=== PATIENT | female | born 1985 | race Caucasian/White ===

== ENCOUNTER 2016-11-02 14:25 | Inpatient (IN) | payer OTHER ==
--- NOTE | 2016-11-02 15:31 | HP ---
[id number] Chief Complaint: R/o premature of membranes History Source: Patient - Past Medical History ...: 4 ...Para: 1 - Past Surgical History Past Surgical History: Yes: None, Hx Myomectomy: No Hx Transabdominal Cerclage: No Home Medications - Allergies Allergies/Adverse Reactions: Allergies Allergy/AdvReac Type Severity Reaction Status Date / Time No Known Allergies Allergy Verified 11/02/16 15:10 - Home Medications Home Medications: Ambulatory Orders Vit/Iron Fumarate/FA [ Tablet] 1 tab PO DAILY 11/02/16 Review of Systems - Review of Systems Constitutional: reports: No Symptoms Eyes: reports: No Symptoms HENT: reports: No Symptoms Neck: reports: No Symptoms Cardiovascular: reports: No Symptoms Respiratory: reports: No Symptoms Gastrointestinal: reports: No Symptoms Genitourinary: reports: No Symptoms Breasts: reports: No Symptoms Reported Musculoskeletal: reports: No Symptoms Integumentary: reports: No Symptoms Neurological: reports: No Symptoms Endocrine: reports: No Symptoms Hematology/Lymphatic: reports: No Symptoms Psychiatric: reports: No Symptoms Physical Exam - Maternity Constitutional: Yes: Well Nourished, No Distress - Abdominal Exam/OB Fundal Height: 1 Number of Fetuses: Single Presentation: Vertex Contractions: No Monitor Mode: External Category: I Decelerations: None - Vaginal Exam/OB Dilatation (cm): closed Effacement (%): long Amniotic Membrane Status: Intact Nitrazine Test: Negative Presentation: Vertex/Position - Physical Exam Musculoskeletal: Yes: WNL Extremities: Yes: WNL Edema: No Hemorrhage Risk Assessment - Risk Factors Medium Risk Factors: Yes: Prior , uterine surgery,or multiple laparotomies Risk Score: 1 Risk Level: Medium Risk Problem List - Problems (1) 26 weeks gestation of Code(s): Z3A.26 - 26 WEEKS GESTATION OF (2) Oligohydramnios antepartum Code(s): O41.00X0 - OLIGOHYDRAMNIOS, UNSP TRIMESTER, NOT APPLICABLE OR UNSP Qualifiers: Fetus number: single or unspecified fetus Trimester: second trimester Qualified Code(s): O41.02X0 - Oligohydramnios, second trimester, not applicable or unspecified Assessment/Plan GDM Oligo asmit for observation to see if leaking iup at 26 weeks Prev CS Plan Admit to observe steroids x 48 IV abs will see mFM on Monday DC home vs transfer to [facility]
[2016-11-02] MEDS ORDERED: BETAMET ACET/BETAMET NA PH 30 MG/5 ML VIAL IM ONE (15:33)
[2016-11-02] MEDS: ELECTROLYTE-148 SOLN 1,000 ML IV SCH (16:00)
[2016-11-02 16:03] VITALS: BMI 38.0
[2016-11-02 16:39] LABS: BASOPHIL 0.4 % (0-2.0); EOSINOPHIL 0.6 % (0-4.5); MCH 20.8 pg (25.7-33.7); MCHC 31.8 g/dl (32.0-36.0); MEAN CELL VOLUME 65.4 fl (80-96); MEAN PLT VOLUME 8.4 fl (7.5-11.1); NEUTROPHILS 77.4 % (42.8-82.8); PLATELET COUNT 321 K/MM3 (134-434); RDW 16.3 % (11.6-15.6)
[2016-11-02 16:53] LABS: INR 1.05 (0.82-1.09); PROTHROMBIN TIME (PATIENT) 11.6 SEC (9.98-11.88)
[2016-11-02 17:01] LABS: CALCIUM 8.8 mg/dL (8.5-10.1); CREATININE 0.4 mg/dL (0.55-1.02)
[2016-11-02 18:14] LABS: URINE APPEARANCE CLEAR; URINE BILIRUBIN NEGATIVE (NEGATIVE); URINE BLOOD NEGATIVE (NEGATIVE); URINE COLOR STRAW; URINE GLUCOSE (UA) NEGATIVE (NEGATIVE); URINE KETONE 2+ (NEGATIVE); URINE LEUK ESTERASE NEGATIVE (NEGATIVE); URINE NITRITE NEGATIVE (NEGATIVE); URINE PROTEIN NEGATIVE (NEGATIVE); URINE UROBILINOGEN NEGATIVE E.U./dl (0.2-1.0)
[2016-11-02 18:17] LABS: ANISOCYTOSIS 1+; HYPOCHROMIA 2+; MICROCYTOSIS 1+; PLATELET COMMENT2 NO CLUMPING NOTED; PLATELET ESTIMATE ADEQUATE (NORMAL)
[2016-11-02] MEDS: AMPICILLIN - 2 GM in SODIUM CHLORIDE 100 ML IVPB SCH (20:00)
[2016-11-02] MEDS ORDERED: AMPICILLIN - 2 GM in SODIUM CHLORIDE 100 ML IVPB SCH (21:00)
[2016-11-03 01:00] LABS: BASOPHIL 0.3 % (0-2.0); MCHC 32.2 g/dl (32.0-36.0); MEAN CELL VOLUME 65.1 fl (80-96); MEAN PLT VOLUME 8.5 fl (7.5-11.1); NEUTROPHILS 90.6 % (42.8-82.8); PLATELET COUNT 324 K/MM3 (134-434); RDW 15.9 % (11.6-15.6); WHITE BLOOD COUNT 15.3 K/mm3 (4.0-10.0)
[2016-11-03] MEDS: AMPICILLIN - 2 GM in SODIUM CHLORIDE 100 ML IVPB SCH ×4 (02:00→20:12)
[2016-11-03 08:02] LABS: BASOPHIL 0.2 % (0-2.0); MCH 20.8 pg (25.7-33.7); MCHC 31.6 g/dl (32.0-36.0); MEAN CELL VOLUME 65.7 fl (80-96); MEAN PLT VOLUME 8.6 fl (7.5-11.1); NEUTROPHILS 85.6 % (42.8-82.8); PLATELET COUNT 317 K/MM3 (134-434); RDW 16.5 % (11.6-15.6)
--- NOTE | 2016-11-03 10:35 | PN ---
[id number] MFM If improved will dc home if worse transfer to [facility] for delivery - Current Medications Current Medications: Active Medications Betamethasone Acet/Betameth SodPhos (Celestone Soluspan -) 12.5 mg IM ONCE ONE Stop: 11/03/16 10:32 Parenteral Electrolytes (Plasma-Lyte 148 -) 1,000 mls @ 125 mls/hr IV ASDIR [facility] Last Admin: 11/02/16 16:00 Dose: 125 mls/hr Ampicillin Sodium 2 gm/ Sodium (Chloride) 100 mls @ 200 mls/hr IVPB Q6H [facility] Last Admin: 11/03/16 08:18 Dose: 200 mls/hr - Objective Vital Signs: Vital Signs Temperature 97.7 F 11/03/16 08:22 Pulse Rate 84 11/03/16 08:22 Respiratory Rate 20 11/03/16 08:22 Blood Pressure 127/59 11/03/16 08:22 O2 Sat by Pulse Oximetry (%) Constitutional: Yes: Well Nourished, No Distress Cardiovascular: Yes: WNL Respiratory: Yes: WNL, Regular, CTA Bilaterally Gastrointestinal: Yes: WNL, Normal Bowel Sounds, Soft, Other (gravid 28cm) Breast(s): Yes: WNL Musculoskeletal: Yes: WNL Extremities: Yes: WNL Labs Lab Results: CBC, BMP 11/03/16 06:00 11/02/16 16:00 Problem List - Problems (1) 26 weeks gestation of Code(s): Z3A.26 - 26 WEEKS GESTATION OF (2) Oligohydramnios antepartum Code(s): O41.00X0 - OLIGOHYDRAMNIOS, UNSP TRIMESTER, NOT APPLICABLE OR UNSP Qualifiers: Fetus number: single or unspecified fetus Trimester: second trimester Qualified Code(s): O41.02X0 - Oligohydramnios, second trimester, not applicable or unspecified (3) Previous delivery, antepartum Code(s): O34.219 - MATERNAL CARE FOR UNSP TYPE SCAR FROM PREVIOUS DEL Assessment/Plan GDM Oligo asmit for observation to see if leaking iup at 26 weeks Prev CS Plan Admit to observe steroids x 48 IV abs will see mFM on Monday DC home vs transfer to [facility]
[2016-11-03 12:06] LABS: BASOPHIL 0.3 % (0-2.0); EOSINOPHIL 0.1 % (0-4.5); MCH 20.6 pg (25.7-33.7); MCHC 31.4 g/dl (32.0-36.0); MEAN CELL VOLUME 65.5 fl (80-96); NEUTROPHILS 81.2 % (42.8-82.8); PLATELET COUNT 350 K/MM3 (134-434); RDW 16.5 % (11.6-15.6); WHITE BLOOD COUNT 19.5 K/mm3 (4.0-10.0)
[2016-11-03] MEDS ORDERED: BETAMET ACET/BETAMET NA PH 30 MG/5 ML VIAL IM ONE (16:00)
[2016-11-03] MEDS: ELECTROLYTE-148 SOLN 1,000 ML IV SCH (18:55)
[2016-11-03 19:43] LABS: BASOPHIL 0.1 % (0-2.0); MCH 21.2 pg (25.7-33.7); MCHC 32.4 g/dl (32.0-36.0); MEAN CELL VOLUME 65.3 fl (80-96); MEAN PLT VOLUME 8.7 fl (7.5-11.1); NEUTROPHILS 87.7 % (42.8-82.8); PLATELET COUNT 335 K/MM3 (134-434); RDW 16.5 % (11.6-15.6); WHITE BLOOD COUNT 16.3 K/mm3 (4.0-10.0)
[2016-11-04] MEDS: AMPICILLIN - 2 GM in SODIUM CHLORIDE 100 ML IVPB SCH ×2 (02:09→07:53)
[2016-11-04] MEDS: ELECTROLYTE-148 SOLN 1,000 ML IV SCH (04:34)
[2016-11-04 08:28] LABS: BASOPHIL 0.1 % (0-2.0); MCH 20.8 pg (25.7-33.7); MCHC 31.8 g/dl (32.0-36.0); MEAN CELL VOLUME 65.6 fl (80-96); MEAN PLT VOLUME 8.5 fl (7.5-11.1); NEUTROPHILS 81.4 % (42.8-82.8); PLATELET COUNT 325 K/MM3 (134-434); RDW 16.3 % (11.6-15.6); WHITE BLOOD COUNT 15.2 K/mm3 (4.0-10.0)
[2016-11-04 09:37] VITALS: BP 120/68; PULSE 75; TEMP 98.1
[2016-11-04 10:02] LABS: ANISOCYTOSIS 2+; HYPOCHROMIA 1+; MICROCYTOSIS 1+
[2016-11-04 12:20] LABS: BASOPHIL 0.1 % (0-2.0); EOSINOPHIL 0.1 % (0-4.5); MCH 20.8 pg (25.7-33.7); MCHC 31.8 g/dl (32.0-36.0); MEAN CELL VOLUME 65.6 fl (80-96); MEAN PLT VOLUME 8.3 fl (7.5-11.1); NEUTROPHILS 76.9 % (42.8-82.8); PLATELET COUNT 337 K/MM3 (134-434); RDW 16.6 % (11.6-15.6); WHITE BLOOD COUNT 16.7 K/mm3 (4.0-10.0)
--- NOTE | 2016-11-04 12:30 | PN ---
Progress Note, Physician Chief Complaint: Pt seen/evaluated, no complaints. No LOF no ctx no vb +FM no fevers/chills - Current Medication List Current Medications: Active Medications Parenteral Electrolytes (Plasma-Lyte 148 -) 1,000 mls @ 125 mls/hr IV ASDIR [facility] Last Admin: 11/04/16 04:34 Dose: 125 mls/hr Ampicillin Sodium 2 gm/ Sodium (Chloride) 100 mls @ 200 mls/hr IVPB Q6H [facility] Last Admin: 11/04/16 07:53 Dose: 200 mls/hr - Objective Vital Signs: Vital Signs Temperature 98.1 F 11/04/16 09:35 Pulse Rate 75 11/04/16 09:35 Respiratory Rate 18 11/04/16 09:35 Blood Pressure 120/68 11/04/16 09:35 O2 Sat by Pulse Oximetry (%) Constitutional: Yes: Well Nourished, No Distress, Calm Eyes: Yes: Conjunctiva Clear, EOM Intact HENT: Yes: Atraumatic, Normocephalic Neck: Yes: Supple, Trachea Midline Gastrointestinal: Yes: Normal Bowel Sounds, Soft Extremities: Yes: WNL Neurological: Yes: Alert, Oriented Psychiatric: Yes: Alert, Oriented Labs: CBC, BMP 11/04/16 11:45 11/02/16 16:00 INR, PTT INR 1.05 (0.82-1.09) 11/02/16 16:00 - ....Imaging Ultrasound: Report Reviewed Problem List - Problems (1) 26 weeks gestation of Code(s): Z3A.26 - 26 WEEKS GESTATION OF Assessment/Plan 31 y/o with SIUP at 26.6 weeks gestation, HARPREET of 6 - FHTS reactive on NST - s/p betamethasone X 2 (likely cause of transient leukocytosis) - no LOF, HARPREET stable on repeat ultrasound today, no abdominal pain or ctx - pt stable for discharge home - has u/s appt tuesday 11/07 for repeat HARPREET - to call with any LOF/VB/dec FM or ctx
--- NOTE | 2016-11-04 12:36 | DS ---
Physical Exam-[employer] Vital Signs: Vital Signs Temperature 98.1 F 11/04/16 09:35 Pulse Rate 75 11/04/16 09:35 Respiratory Rate 18 11/04/16 09:35 Blood Pressure 120/68 11/04/16 09:35 O2 Sat by Pulse Oximetry (%) Constitutional: Yes: Well Nourished, No Distress, Calm Eyes: Yes: Conjunctiva Clear, EOM Intact HENT: Yes: Atraumatic, Normocephalic Neck: Yes: Supple, Trachea Midline Gastrointestinal: Yes: Normal Bowel Sounds, Soft, Other (gravid) Extremities: Yes: WNL Neurological: Yes: Alert, Oriented Psychiatric: Yes: Alert, Oriented Labs: CBC, BMP 11/04/16 11:45 11/02/16 16:00 Delivery, Single - Feeding Plan Initial Plan: Exclusive throughout hospitalization Discharge Summary Current Active Problems 26 weeks gestation of (Acute) Procedures: Principal: betamethasone injection. ultrasound Hospital Course: Pt admitted on 11/02 with low HARPREET (6) to rule out PPROM/ labor. Pt had perinatology ultrasound showing HARPREET 6, admitted same day and given betamethasone X 2 doses (24 hours apart). Repeat HARPREET/ultrasound on 11/04 showed stable HARPREET. Pt with no leaking fluid or contractions throughout entire stay. No signs/sx of abruption or chorioamnionitis. Pt discharged home in stable condition on 11/04 with instructions for for close follow up. Condition: Good - Instructions Diet, Activity, Other Instructions: keep scheduled appointment for monday11/07/16 @830 am [facility] for ultrasound. schedule appointment with ob or monday this week. if water leaking,contractions or vaginal bleeding call ob. Referrals: Kristal Dee MD [Staff Physician] - Disposition: HOME - Home Medications Comprehensive Discharge Medication List: Ambulatory Orders Vit/Iron Fumarate/FA [ Tablet] 1 tab PO DAILY 11/02/16
== END 2016-11-04 12:45 | disposition home or self-care (01) | DRG 886 ==
LOC: JDEL 14:25 → JLDR 15:00 → J3W 20:53
PROVIDERS: ADMIT Obstetrics & Gynecology; ATTEND Obstetrics & Gynecology
PROC: 3E0233Z Introduction of Anti-inflammatory into Muscle, Percutaneous Approach (ICD-10-PCS; principal; 2016-11-03)
DX: O41.02X0 Oligohydramnios, second trimester, not applicable or unspecified (principal); O24.419 Gestational diabetes mellitus in pregnancy, unspecified control; Z3A.26 26 weeks gestation of pregnancy
CPT/HCPCS: 36415; 80048; 81003; 85025; 85610; 85730; 86593; 86850; 86900; 86901; 87086; 87340; 96372

== ENCOUNTER 2017-11-09 10:41 | Emergency (ER) | payer OTHER ==
[2017-11-09 10:49] VITALS: BP 139/84; PULSE 72; TEMP 98.6; BMI 32.5
[2017-11-09] MEDS ORDERED: KETOROLAC TROMETHAMINE 60 MG/2 ML VIAL IM ONE (11:09)
--- NOTE | 2017-11-09 11:09 | PDOC ---
History of Present Illness - General Chief Complaint: Pain, Acute Stated Complaint: NECK PAIN Time Seen by Provider: 11/09/17 10:55 History Source: Patient Exam Limitations: No Limitations - History of Present Illness Initial Comments: 11/09/17 11:10 32-year-old female presents to the ED with complaints of left-sided neck pain worsening in severity over the past 2 days which began approximately 4 days ago after awakening in the morning. Patient denies injury or heavy lifting prior to onset. Patient states has tried taking Motrin and applying heat with no improvement. Patient states has limited range of motion and when she tries to move her neck she has sharp shooting pain to the base of her head radiating to her shoulder blades. Timing/Duration: other Severity: mild, moderate Associated Symptoms: reports: denies symptoms Past History - Travel Traveled outside of the country in the last 30 days: No - Past Medical History Allergies/Adverse Reactions: Allergies Allergy/AdvReac Type Severity Reaction Status Date / Time No Known Allergies Allergy Verified 11/09/17 10:47 Home Medications: Ambulatory Orders Acetaminophen 325 mg PO TID PRN #21 tablet 11/09/17 Diazepam [Valium] 5 mg PO BID PRN #8 tablet MDD 2 11/09/17 Oxycodone HCl/Acetaminophen [Percocet 5-325 mg Tablet] 1 - 2 tab PO Q6H PRN #12 tab MDD 4 11/09/17 Asthma: No Cancer: No Cardiac Disorders: No CVA: No COPD: No DVT: No Diabetes: Yes (GD-DIET CONTROL) HTN: No Seizures: No Thyroid Disease: No - Immunization History Immunization Up to Date: Yes - Suicide/Smoking/Psychosocial Hx Smoking History: Never smoked Have you smoked in the past 12 months: No Information on smoking cessation initiated: No Hx Alcohol Use: No Drug/Substance Use Hx: No Substance Use Type: None Hx Substance Use Treatment: No Patient Lives Alone: No Lives with/in: spouse/SO Review of Systems - Review of Systems Able to Perform ROS?: Yes Constitutional: No: Symptoms Reported HEENTM: No: Symptoms Reported Respiratory: No: Symptoms reported Musculoskeletal: Yes: Muscle Pain, Neck Pain Integumentary: No: Symptoms Reported Neurological: No: Symptoms reported *Physical Exam - Vital Signs Last Vital Signs Temp Pulse Resp BP Pulse Ox 98.6 F 72 17 139/84 99 11/09/17 10:47 11/09/17 10:47 11/09/17 10:47 11/09/17 10:47 11/09/17 10:47 - Physical Exam General Appearance: Yes: Nourished, Appropriately Dressed. No: Apparent Distress Neck: positive: Tender (left trapezius left sternoclavicular muscle), Normal Thyroid, Supple, Decreased range of motion, Other (chin tilted). negative: Tender midline Respiratory/Chest: positive: Lungs Clear, Normal Breath Sounds. negative: Respiratory Distress, Accessory Muscle Use Medical Decision Making - Medical Decision Making 11/09/17 11:22 Patient complains of left-sided neck pain. Patient with acquired torticollis. Patient ordered for Toradol IM and will be discharged home with Valium and Tylenol along with Percocet since patient drove here and will not give narcotics prior to discharge. *DC/Admit/Observation/Transfer Diagnosis at time of Disposition: Torticollis, acquired - Discharge Dispostion Disposition: HOME Condition at time of disposition: Good - Prescriptions Prescriptions: Acetaminophen 325 mg PO TID PRN #21 tablet PRN Reason: Pain Diazepam [Valium] 5 mg PO BID PRN #8 tablet MDD 2 PRN Reason: Pain Oxycodone HCl/Acetaminophen [Percocet 5-325 mg Tablet] 1 - 2 tab PO Q6H PRN #12 tab MDD 4 PRN Reason: Pain - Referrals - Patient Instructions Printed Discharge Instructions: DI for Torticollis Additional Instructions: Please take medication as prescribed and use the pillow as described during the day to decrease tension and exertion. Please and operate any heavy machinery while taking this medication. - Post Discharge Activity
[2017-11-09] MEDS ORDERED: KETOROLAC TROMETHAMINE 60 MG/2 ML VIAL ONE (11:12)
== END 2017-11-09 11:50 | disposition home or self-care (01) ==
LOC: JERFT 10:41
PROC: 3E0233Z Introduction of Anti-inflammatory into Muscle, Percutaneous Approach (ICD-10-PCS; principal; 2017-11-09)
DX: M43.6 Torticollis (principal)
CPT/HCPCS: 99281-25